=== PATIENT | male | born 1950 | race Caucasian/White ===

== ENCOUNTER 2017-05-16 08:32 | Outpatient (RCR) | payer SELFPAY ==
--- NOTE | 2017-05-16 16:17 | HP.FCE ---
HP OT Functional Capacity Eval - Task Lift Floor (Occasional 1-33% of Day): 70 lbs Floor (Frequent 34-66% of Day): 35 lbs Floor (Constant 67-100% of Day): 14 lbs Floor PDL: Medium Knee (Occasional 1-33% of Day): 70 lbs Knee (Frequent 34-66% of Day): 35 lbs Knee (Constant 67-100% of Day): 14 lbs Knee PDL: Medium Waist (Occasional 1-33% of Day): 70 lbs Waist (Frequent 34-66% of Day): 35 lbs Waist (Constant 67-100% of Day): 14 lbs Waist PDL: Medium Shoulder (Occasional 1-33% of Day): 60 lbs Shoulder (Frequent 34-66% of Day): 30 lbs Shoulder (Constant 67-100% of Day): 12 lbs Shoulder PDL: Medium Overhead (Occasional 1-33% of Day): 50 lbs Overhead (Frequent 34-66% of Day): 25 lbs Overhead (Constant 67-100% of Day): 10 lbs Overhead PDL: Medium Comments: Pt. scored between medium and medium heavy. He was scored in medium category with consideration of shoulder joint and as he was unable to lift full 75 lbs that would qualify him in the medium hard category. - Work Activity/Posture Bending: Frequent Ability (34-66% of day) Squatting: Frequent Ability (34-66% of day) Kneeling: Frequent Ability (34-66% of day) Reaching out: Frequent Ability (34-66% of day) Reaching up: Frequent Ability (34-66% of day) Sitting: Frequent Ability (34-66% of day) Walking: Frequent Ability (34-66% of day) Standing: Frequent Ability (34-66% of day) - Reference Duration Sedentary Sedentary Light Light Light Medium Medium Medium Heavy Very Heavy Heavy Occasional (0-33% of day) Frequent (34-66% of day) Constant (67-100% of day) 10 # Negligible Negligible 15 # 8 # Negligible 20 # 10# Negli. 35 # 18 # 7 # 50 # 25 # 10 # 75 # 100 # >100 # 38 # 50 # >50 # 15 # 20 # >20 # - Patient Information Height: 5 ft 9 in Weight:: 180 g Hand Dominance: R hand - Medical History Medical History Including Restrictions: Pt. notes no medical restrictions at this time. He notes that he has only been lifting about 8 lbs at this time. - Diagnoses Diagnoses: Pt. tore rotator cuff in December. Per Pt. report his PMHx is insignificant and includes HTN, osteoarthitis of R shoulder, s/p rotator cuff repair, and R knee pain. - Symptoms Symptoms: Pt. main symptom is pain in R shoulder. Pain in shoulder in sitting 0/10. He notes that he still gets a 'soreness' pain and he gets a pinch when completing over head reaching tasks. - Pain Pain: Pt. noted pain in R shoulder. Pain in shoulder in sitting 0/10. - Work History Work History: Pt. works for [employer] in [place]. He notes he does have to lift 'a lot' but notes that it is not consistently. He notes that he is on his feet 10 hours a day. He reports having to lift on occassion 60 lbs. He notes he reports that he routinely has to lift 10-35 lbs. 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 - Behavioral Behavioral: Pt. is very motivated to return to work. He exhibits some increased anxiety of reinjury to R shoulder but is motivated to return to work. He completed all tasks asked and was willing to push himself within threshold of pain and comfort level. After completion of lifting portion of FCE he stated, I'm proud of myself. I did know if I could still lift that much. - ADLS ADLS: Pt. lives at home with . Pt. lives in house with [facility] [place] and basement. He notes 2 steps into house and then he notes 10 steps to get to basement. 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 He noted carrying 50 lbs bags of feed with one arm (L arm). 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 He notes that he typcially uses L arm for most heavy IADLs and is (i) for B UE movements for ADL and light IADLs at this time. - Physical Examination Physical Examination: Pt., [place], seen for FCE on this date. Pt. s/p rotator cuff tear and repair. He has been recieving PT services a [facility] and was sent to [facility] for FCE. He works at [employer] in [place] and lifts between 10-60 lbs daily. Pt. subjective rating on Functional Activities Questionnaire indicates he completes all ADL/IADLs tasks, is able to ride in car for 4 hours daily, walk for 3 hours lsit for 3 hours, and stand/walk for 13 hours. He noted most comfortable position is leaning back with knees bent. Further results of ROM, strength, repetitive movement, and lifting tasks can be examined in designated sections. ROM: UE: WFL. Shoudler: flexion: R 0- 144 ; L 0-154. extentsion: 0- 34, 0- 35. abduction: 0-149, L 0-163. internal rotation: WFL. extneral rotation: WFL. LE: WFL Strength: Pt. strength measurments on MMT is as follows: UB: deltoid: R 4/5; L 5/5. bicep: 4/5; L 4+/5. tricep: 3+/5; L 4+/5. LB: hip flexors: R 4+/5, L 4+/5. hamstrings: R 4+/5, L 4-/5. hip adductors: R 4+/5, L 4+/5. plantar flexion: R 4+/5, L 4+/5 Right Independent Marketing Consultant Strength Average: 120.66 Right Independent Marketing Consultant Strength Percentile: 97th Left Independent Marketing Consultant Strength Average: 129.66 Left Independent Marketing Consultant Strength Percentile: 99th Right Lateral Pinch Average: 17.33 Right Lateral Pinch Percentile: above 25th below 50th Left Lateral Pinch Average: 22.00 Left Lateral Pinch Percentile: above 90th Right Tripod Pinch Average: 17.33 Right Tripod Pinch Percentile: above 50th below 75th Left Tripod Pinch Average: 20.66 Left Tripod Pinch Percentile: 90th percentile Sensation: Pt. sensation is intact and WFL. Monofilament test completed on this date and results are as follows: R 2nd 3.22, 3rd 2.83, 4th 2.83, 5th 2.83, thumb 2.83; L 2nd 2.83 , 3rd 2.83 , 4th 2.83 , 5th 2.83, thumb 2.83. A score of 2.83 indicates normal touch sensation while a score of 3.22 indicates decreased light touch sensation. Touch sensation is WFL at this time. Fine Motor: [place]'s FMC is intact and WFL. He completed 9 hole peg test on R hand in 20.83 s, and on the L hand 24.19 s. These results indicate between 75th and 90th percentile for R hand and 50th percentile for L hand for age normative performances. Balance: Joal balance is good and no LOB present during FCE. - Non Material Handling Activities Bendinx, 10x, 10x fast. No pain, good body mechanics, ROM is WFL. Squattinx, 10x , 10x fast. with use of hands on legs for increased support to maintain balance, no pain in UE, discomfort in R knee area during movements with need to compensate with hand on legs, good body mechanics, and pain in R knee at 2/10. Notes knees are sore but 'still work.' Kneelinx, 10x, 10x fast. Noted sore knees but no pain, ROM is WFL, and able to complete task. Reaching out/up: reaching out: 3x, 10x, 10x fast. Notes no pinching. Reaching up: 3x, 10x, 10x fast. no pain; Pt. noted sight pull teres minor area; ROM WFL without load. Walkin mins of consistent walking with no need for seated or standing break. Standing: Pt. able to stand 30 mins during session with consistent movements between dynamic tasks. Notes some discomfort in R knee but no pain at this time. Sittin-40 mins with pain of discomfort. Climbing Stairs: 10 stairs with use of 1x handrail and alternating foot pattern. No LOB and good balance present. Report no issues and consistent ude of stairs while at home. - Dynamic Occasional Lifting Capacity Floor Lift: 70 lbs. . Completed floor lift with good body mechanics and proper spinal alignment. He noted no pain with movements at this time. No signs of distress present with tasks. Knee Lift: 70 lbs. Completed knee lift with good body mechanics and proper spinal alignment. ROM is WFL for manipulation of item at this time. He noted no pain with movements at this time. No signs of distress present with task. Waist Lift: 70 lbs. Completed wait lift with fair body mechanics with increae twisting of spine to place box on designated area. ROM is WFL for manipulation of items. He noted no pain with movements at this time. No signs of distress present with task. Shoulder Lift: 60 lbs. Completed shoudler lift with fair body mechanics and increased need for compensations to manipualte box to shoulder height placement. He noted no pain with movements at this time just slight 'pull of muscle'. Slight signs of strain through nonverbals of faint facial grimance at this time noted at this time. Overhead Lift: 50 lbs. Completed overhead lift with fair body mechanics and increased need for compensations to manipulate box to shoulder height placement. He noted no pain with movements at this time just slight 'pull of muscle'. Slight signs of strain with very faint facial grimance at this time. Carryin lbs. Completed carrying with good body mechanics and even distribution of weight of box to B UE. He noted no pain with movements at this time just slight 'pull of muscle'. Slight signs of strain with very faint facial grimance at this time Comments: Pt., [place], has completed PT services and is awaiting approval to return to work. From further interview with him he has been not been using above 5-8 lbs to complete home based exercises given by PT as that is what he was instructed to complete. He presents with fear of re-retearing rotator cuff. He is able to lift designated amounts of weight with fair-good body mechanics. It maybe benefitical to have Pt. slowly return to full duty work to promote adherance and decreased anxiety of potential retear of rotator cuff. He was advised to increased repetitions of home based exercises program at this time to increase strength and endurance of R shoulder. He is very motivated and is ready to reutrn to work and it maybe beneficial to do so a more progressed type of pace.
--- NOTE | 2017-05-16 16:17 | HP.OTFCE.D ---
FCE D/C Summary - Discharge CHEO DAVIS was seen for a one time visit for an FCE on 05/16/17 and is discharged.
== END 2017-05-16 19:00 | disposition home or self-care (01) ==
LOC: OT 08:32
PROVIDERS: Family Provider Family Medicine; PCP Family Medicine; Visit Provider Physician Assistant
DX: M19.011 Primary osteoarthritis, right shoulder (principal); S46.011D Strain of muscle(s) and tendon(s) of the rotator cuff of right shoulder, subsequent encounter
CPT/HCPCS: 97750

== ENCOUNTER → 2023-05-02 | Outpatient (CLI) | payer MEDICARE, SELFPAY ==
--- NOTE | 2023-05-02 08:30 | KNEE_PTH ---
PATIENT: CHEO DAVIS [facility] U#:[id number] AGE/SX: 73/M ROOM: RE05/02/[address]: Dr. Kristopher Best DO : 1950 BED: DIS: 05/02/2023 SPEC #: [id number] RECD: 05/02/23 10:52 STATUS: FARIDEH REGuero #: [id number] KOURTNEY: 05/02/23 08:[address]: Kristopher Best DEPT: SURGICAL PATHOLOGY RECD BY: Charan Diaz ENTERED: 05/05/23 10:53 SP TYPE: TOTAL KNEE OTHR DR: Dr. Cheng Rankin MD [facility] Tissues: Knee, NOS Procedures: Decalcification bone/plaque Surgery Specimen Level IV HEADER OPERATION: Left total knee arthroplasty with robotic assistance PRE-OP DIAGNOSIS: Unilateral post-traumatic osteoarthritis left knee TISSUE SUBMITTED: Bone and tissue left knee MICROSCOPIC DIAGNOSIS Bone and tissue of left knee, total knee resection: Severe degenerative joint disease. Mild synovial hyperplasia. AM:wilfred 05/08/2023 MICROSCOPIC DESCRIPTION Slides are reviewed. GROSS DESCRIPTION Received is one container designated left knee bone and tissue. The specimen consists of multiple fragments of kwon-yellow bone measuring in aggregate 9.0 x 12.0 x 3.5 cm. Also in the specimen container are multiple fragments of yellow-white soft tissue measuring in aggregate 8.5 x 10.0 x 3.0 cm. A number of bony fragments contain articular surfaces consistent with tibial plateau and femoral condyle and displaying prominent osteophyte formation and bone erosion. Web Application Tester sections are submitted in two cassettes as follows: 1 - soft tissue, 2 - bone after decalcification. / SJ:wilfred 05/05/2023 TC:5 [facility]: [id number], [id number]
== END | disposition home or self-care (01) ==
LOC: LABSPEC 15:15
PROVIDERS: PCP Family Medicine; Referring Provider Orthopaedic Surgery; Visit Provider Orthopaedic Surgery
DX: M17.12 Unilateral primary osteoarthritis, left knee (principal)
CPT/HCPCS: 88305; 88311

== ENCOUNTER → 2023-09-10 | Outpatient (CLI) | payer MEDICARE, BC, SELFPAY ==
--- NOTE | 2023-09-10 | KNEE_PTH ---
PATHOLOGY RESULTS PATIENT: CHEO DAVIS [facility] U#:[id number] AGE/SX: 73/M ROOM: RE09/10/[address]: Dr. Kristopher Best DO : 1950 BED: DIS: 09/10/2023 SPEC #: [id number] RECD: 09/11/23 09:05 STATUS: FARIDEH REGuero #: [id number] KOURTNEY: 09/10/23 00:[address]: Kristopher Best DEPT: SURGICAL PATHOLOGY RECD BY: Charan Diaz ENTERED: 09/11/23 09:09 SP TYPE: TOTAL KNEE OTHR DR: Dr. Cheng Rankin MD [facility] Tissues: Knee, NOS Procedures: Decalcification bone/plaque Surgery Specimen Level IV HEADER OPERATION: Right robotic assisted total knee arthroplasty PRE-OP DIAGNOSIS: Unilateral primary osteoarthritis right knee TISSUE SUBMITTED: Right knee bone and soft tissue MICROSCOPIC DIAGNOSIS Bone and tissue of right knee, total knee resection: Severe degenerative joint disease. Mild synovial hyperplasia. AM:wilfred 09/17/2023 MICROSCOPIC DESCRIPTION Slides are reviewed. GROSS DESCRIPTION Received is one container designated bone and soft tissue right knee. The specimen consists of multiple fragments of kwon-yellow bone measuring in aggregate 16.0 x 14.0 x 2.0 cm. Also in the specimen container are multiple fragments of yellow-white soft tissue measuring in aggregate 10.0 x 7.0 x 2.0 cm. A number of bony fragments contain articular surfaces consistent with tibial plateau and femoral condyle and displaying prominent osteophyte formation, eburnation and bone erosion. Organ Pipe Voicer sections are submitted in two cassettes as follows: 1 - soft tissue, 2 - bone after decalcification. / AM:wilfred 09/11/2023 TC:5 [facility]: [id number], [id number]
== END | disposition home or self-care (01) ==
LOC: LABSPEC 15:42
PROVIDERS: PCP Family Medicine; Visit Provider Orthopaedic Surgery
DX: M17.11 Unilateral primary osteoarthritis, right knee (principal)
CPT/HCPCS: 88305; 88311